=== PATIENT | female | born 1990 | race Caucasian/White ===

== ENCOUNTER 2018-09-18 05:38 | Emergency (ER) | payer MEDICAID, OTHER ==
[~2018-09-18] VITALS: Ht 149.9 cm; Wt 74.8 kg
[2018-09-18] MEDS ORDERED: ZOLPIDEM 5 MG (AMBIEN) TAB ONE (06:32)
--- NOTE | 2018-09-18 06:44 | ED General ---
General Chief Complaint: General Problems/Pain Stated Complaint: NOT SLEEPING Nursing Triage Note: Pt amb to room #5 w/o difficulty. a&ox4. C/o sleep disturbances. Pt states, "I don't remember the last time I got any sleep was." Reports to have gotten an approx x4hr nap yesterday. Pt reports she is unable to sleep d/t stresss and having a 3 month old child. Denies pain. Nursing Sepsis Screen: No Definite Risk Source of Information: Patient, Family History of Present Illness Date Seen by Provider: Sep 18, 2018 Time Seen by Provider: 06:39 Initial Comments 28-year-old white female presents with stress anxiety and insomnia. Patient had an improvement in 3 months ago and is having significant stress and anxiety in her work and home life. The patient has taken nothing for sleep and needs medication temporarily to make this possible. She denies suicidal ideation. The patient has had long-standing stress and anxiety which is peaked with the 3 months ago Patient denies recreational drugs. She denies headache, stiff neck, chest pain, shortness of breath, nausea vomiting or diarrhea. Allergies and Home Medications Allergies Coded Allergies: No Known Drug Allergies (Unverified , 09/18/18) Patient Home Medication List Home Medication List Reviewed: Yes Review of Systems Review of Systems Constitutional: No chills, No fever EENTM: no symptoms reported Respiratory: no symptoms reported; No cough Cardiovascular: no symptoms reported; No chest pain, No palpitations Gastrointestinal: No abdominal pain, No nausea, No vomiting Genitourinary: No dysuria, No frequency Musculoskeletal: No no symptoms reported Skin: No no symptoms reported Psychiatric/Neurological: See HPI, Anxiety, Depressed, Other (insomnia) Hematologic/Lymphatic: No Symptoms Reported Immunological/Allergic: no symptoms reported Past Iptmgpv-Pecvlh-Yqmjot Hx Past Med/Social Hx: Reviewed Nursing Past Med/Soc Hx Patient Social History Alcohol Use: Occasionally Uses Number of Drinks Today: 0 Recreational Drug Use: No Smoking Status: Current Everyday Smoker Type Used: Electronic/Vapor 2nd Hand Smoke Exposure: Yes Recent Foreign Travel: No Contact w/Someone Who Travel: No Recent Infectious Disease Expo: No Recent Hopitalizations: No Physical Abuse: No Sexual Abuse: No Seasonal Allergies Seasonal Allergies: No Past Medical History Surgeries: No Respiratory: No Cardiac: No Neurological: No Genitourinary: No Gastrointestinal: No Musculoskeletal: No Endocrine: No HEENT: No Cancer: No Psychosocial: Yes Anxiety Integumentary: No Physical Exam Vital Signs Vital Signs - First Documented 09/18/18 06:00 Temp 97.7 Pulse 98 Resp 16 B/P (MAP) 139/92 (108) Pulse Ox 100 O2 Delivery Room Air Capillary Refill : Less Than 3 Seconds Height, Weight, BMI Height: 4'11.00" Weight: 165lbs. oz. 74.615696ki; BMI Method:Stated General Appearance: WD/WN, Mild Distress Eyes: Bilateral Eye Normal Inspection HEENT: Normal ENT Inspection Neck: Normal Inspection Respiratory: Chest Non Tender, Lungs Clear, Normal Breath Sounds Cardiovascular: Regular Rate, Rhythm, No Murmur Gastrointestinal: Normal Bowel Sounds, Non Tender, Soft Extremity: Normal Inspection Neurologic/Psychiatric: Alert, Oriented x3, No Motor/Sensory Deficits, Depressed Affect Skin: Normal Color, Warm/Dry Progress/Results/Core Measures Suspected Sepsis Recent Fever Within 48 Hours: No Infection Criteria Present: None New/Unexplained Altered Menta: No Sepsis Screen: No Definite Risk SIRS Temperature:97.7 Pulse: 98 Respiratory Rate: 16 Blood Pressure 139 /92 Mean: 108 Results/Orders My Orders Orders - BRII LAU MD Zolpidem Tablet (Ambien Tablet) (09/18/18 06:45) Vital Signs/I&O 09/18/18 06:00 Temp 97.7 Pulse 98 Resp 16 B/P (MAP) 139/92 (108) Pulse Ox 100 O2 Delivery Room Air Capillary Refill : Less Than 3 Seconds Blood Pressure Mean: 108 Progress Note : Time: 06:44 Progress Note The patient appears clearly depressed. The patient mother both deny suicidal ideation. The cause appears to be the additional stress of the infant as well as work. The patient will be given a small amount of Ambien for sleep today. She agreed to follow up with her primary care physician tomorrow. I think she is going to need treatment for her anxiety and depression. Departure Impression Primary Impression: Anxiety and depression Additional Impression: Insomnia secondary to depression with anxiety Disposition: 01 HOME, SELF-CARE Condition: Unchanged Departure-Patient Inst. Decision time for Depature: 06:45 Referrals: NO,LOCAL PHYSICIAN (PCP) Primary Care Physician Patient Instructions: Anxiety, Adult (DC) Add. Discharge Instructions: Ambien for sleep. Follow up with your doctor as soon as possible for evaluation of anxiety and depression. Return if any problems or questions. All discharge instructions reviewed with patient and/or family. Voiced understanding. BRII LAU MD Sep 18, 2018 06:44
[2018-09-18] MEDS ORDERED: ZOLPIDEM 5 MG (AMBIEN) TAB PO ONE (06:45)
[2018-09-18 06:55] VITALS: BP 139/92
== END 2018-09-18 06:55 | disposition home or self-care (01) ==
LOC: EDUNIT# 05:38 → ER 05:42
DX: F51.05 Insomnia due to other mental disorder (principal); F41.8 Other specified anxiety disorders; F17.290 Nicotine dependence, other tobacco product, uncomplicated
CPT/HCPCS: 99283

== ENCOUNTER 2018-11-25 23:33 | Emergency (ER) | payer MEDICAID | END 2018-11-26 02:20 | disposition home or self-care (01) | LOC: ER 23:33 ==

== ENCOUNTER 2022-02-02 16:47 | Emergency (ER) | payer MEDICAID ==
[~2022-02-02] VITALS: Ht 155 cm; Wt 89.3 kg
[~2022-02-02 16:47] MED LIST: HYDR-700 PO; NITR-65 PO
[2022-02-02] MEDS ORDERED: RX-TOBRA/DEXAMETH (TOBRADEX) OP. SUSP 2.5 ML BTL OU STA (17:40)
[2022-02-02] MEDS ORDERED: KETOROLAC 30 MG/ML VIAL ONE (18:10)
[2022-02-02] MEDS ORDERED: KETOROLAC 30 MG/ML VIAL IVP ONE (18:15)
--- NOTE | 2022-02-02 18:18 | ED Cough/URI ---
General Chief Complaint: COVID19 Suspect/Confirmed Stated Complaint: COUGH,FEVER,SORE THROAT,DIZZY,SOA Nursing Triage Note: pt states rt eye drainage since tuesday, fever, cough, congestion, sore throat, tested neg for covid 01/31 at [facility] Source: patient Exam Limitations: no limitations History of Present Illness Date Seen by Provider: Feb 02, 2022 Time Seen by Provider: 17:58 Initial Comments This is a 31-year-old female who presented to the ER via POV with complaints of right eye drainage timesx4 days, fever cough congestion and sore throat. She was seen at [facility] and tested for COVID and strep throat, states that test were negative. They did fluorescein staining of her right eye and no appreciative corneal abrasion. States that she feels that her eye worsened after the fluorescein staining. She was not prescribed any antibiotics. Allergies and Home Medications Allergies Coded Allergies: No Known Drug Allergies (Unverified , 09/18/18) Patient Home Medication List Hydroxyzine HCl (Hydroxyzine HCl) 25 Mg Tablet, 25-50 MG PO Q6H Prescribed by: SABAS DOUGLAS on 11/26/18214 Nitrofurantoin Monohyd/M-Cryst (Macrobid 100 mg Capsule) 100 Mg Capsule, 100 MG PO BID Prescribed by: SABAS DOUGLAS on 11/26/18214 Past Qrwonzt-Fgjfma-Edlxlu Hx Patient Social History Tobacco Use?: Yes Tobacco type used: Cigarettes Smoking Status: Current Everyday Smoker Substance use?: No Alcohol Use?: No Seasonal Allergies Seasonal Allergies: No Past Medical History Surgery/Hospitalization HX: anxiety Surgeries: No Respiratory: No Cardiac: No Neurological: No Female Reproductive Disorders: Denies Genitourinary: No Gastrointestinal: No Musculoskeletal: No Endocrine: No HEENT: No Cancer: No Psychosocial: Yes Sleep Difficulties, Anxiety, Depression Integumentary: No Blood Disorders: No Physical Exam Vital Signs - First Documented 02/02/22 16:54 Temp 36.6 Pulse 102 Resp 20 B/P (MAP) 127/78 (94) Pulse Ox 97 O2 Delivery Room Air Capillary Refill : Less Than 3 Seconds Height: 4'11.00" Weight: 165lbs. oz. 74.804155ks; 37.00 BMI Method:Stated Progress/Results/Core Measures Suspected Sepsis SIRS Temperature: Pulse: 102 Respiratory Rate: 20 Laboratory Tests 02/02/22 18:15: White Blood Count 11.5H Blood Pressure 127 /78 Mean: 94 Laboratory Tests 02/02/22 18:15: Platelet Count 239 Results/Orders Lab Results Laboratory Tests Test 02/02/22 17:05 02/02/22 17:42 02/02/22 18:15 Range/Units Influenza Type A (RT-PCR) Not Detected Not Detecte Influenza Type B (RT-PCR) Not Detected Not Detecte SARS-CoV-2 RNA (RT-PCR) Not Detected Not Detecte Group A Streptococcus Screen NEGATIVE NEGATIVE White Blood Count 11.5 H 4.3-11.0 10^3/uL Red Blood Count 4.41 3.80-5.11 10^6/uL Hemoglobin 13.1 11.5-16.0 g/dL Hematocrit 40 35-52 % Mean Corpuscular Volume 90 80-99 fL Mean Corpuscular Hemoglobin 30 25-34 pg Mean Corpuscular Hemoglobin Concent 33 32-36 g/dL Red Cell Distribution Width 13.4 10.0-14.5 % Platelet Count 239 130-400 10^3/uL Mean Platelet Volume 9.9 9.0-12.2 fL Immature Granulocyte % (Auto) 0 % Neutrophils (%) (Auto) 68 42-75 % Lymphocytes (%) (Auto) 17 12-44 % Monocytes (%) (Auto) 13 H 0-12 % Eosinophils (%) (Auto) 1 0-10 % Basophils (%) (Auto) 0 0-10 % Neutrophils # (Auto) 7.8 1.8-7.8 10^3/uL Lymphocytes # (Auto) 2.0 1.0-4.0 10^3/uL Monocytes # (Auto) 1.5 H 0.0-1.0 10^3/uL Eosinophils # (Auto) 0.1 0.0-0.3 10^3/uL Basophils # (Auto) 0.0 0.0-0.1 10^3/uL Immature Granulocyte # (Auto) 0.1 0.0-0.1 10^3/uL Monoscreen POSITIVE H NEGATIVE My Orders Orders - KEITH KONG [employer]PA[employer] Covid 19 Inhouse Test (02/02/22 16:56) Influenza A And B By Pcr (02/02/22 16:56) Rx-Tobra/Dexameth Ophth Susp (Rx-Tobrade (02/02/22 17:40) Rapid Strep A Screen (02/02/22 17:41) Monotest (02/02/22 18:02) Cbc With Automated Diff (02/02/22 18:02) Comprehensive Metabolic Panel (02/02/22 18:02) Hs C Reactive Protein (02/02/22 18:02) Ed Iv/Invasive Line Start (02/02/22 18:02) Ketorolac Injection (Toradol Injection) (02/02/22 18:15) Dexamethasone Injection (Decadron Inje (02/02/22 18:15) Ketorolac Injection (Toradol Injection) (02/02/22 18:10) Medications Given in ED Current Medications Medications Dose Ordered Sig/Jeremiah Route Start Time Stop Time Status Last Admin Dose Admin Dexamethasone Sodium Phosphate 10 mg ONCE ONCE IV 02/02/22 18:15 02/02/22 18:16 DC 02/02/22 18:25 10 MG Ketorolac Tromethamine 30 mg ONCE ONCE IVP 02/02/22 18:15 02/02/22 18:28 DC 02/02/22 18:20 30 MG Vital Signs/I&O 02/02/22 16:54 Temp 36.6 Pulse 102 Resp 20 B/P (MAP) 127/78 (94) Pulse Ox 97 O2 Delivery Room Air Capillary Refill : Less Than 3 Seconds Blood Pressure Mean: 94 Departure Impression Primary Impression: Mononucleosis Additional Impression: Conjunctivitis Disposition: 01 HOME, SELF-CARE Condition: Improved Departure-Patient Inst. Decision time for Depature: 18:39 Referrals: [facility] (PCP/Family) Primary Care Physician CARLOS ALBERTO SERRANO OD Patient Instructions: Conjunctivitis (Noninfectious Pinkeye) (DC), How to Use Eye Drops and Eye Ointment ED, Mononucleosis (DC) Add. Discharge Instructions: Plan: 1. Make sure you are drinking plenty of fluids to stay hydrated you can try popsicles, ice, Jell-O as these were all feel soothing to your throat. You can also do salt water rinses 3 times a day or you can eat soup broth as this will also help with the pain in your throat. 2. You can take Tylenol or ibuprofen as needed for pain and comfort. 3. You will need to be off work for the next few days while you recover. After mono you have increased risk of injury to your spleen you need to avoid any roughhousing or significant activity that could injure the left upper side of your abdomen. 4. Instill tobramycin drops into your eye every 4 hours for the next 24 hours and then you can decrease it to 4 times a day. 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 You can contact them tomorrow to see if they can have follow-up for you within the next couple days. See contact information below. 5. Follow-up with your doctor next week if you are having any persistent symptoms. Utilize return to the ER if you have any new, concerning, worsening symptoms. All discharge instructions reviewed with patient and/or family. Voiced understanding. KEITH KONG AUTOMOT[employer] GENERATOR REPAIRER Feb 02, 2022 18:18
[2022-02-02 18:29] LABS: BASOPHILS % (AUTO) 0 % (0-10); EOSINOPHILS # (AUTO) 0.1 10^3/uL (0.0-0.3); EOSINOPHILS % (AUTO) 1 % (0-10); HEMATOCRIT 40 % (35-52); HEMOGLOBIN 13.1 g/dL (11.5-16.0); LYMPHOCYTES % (AUTO) 17 % (12-44); MEAN CORPUSCULAR HEMOGLOBIN 30 pg (25-34); MEAN CORPUSCULAR HGB CONC 33 g/dL (32-36); MEAN CORPUSCULAR VOLUME 90 fL (80-99); MEAN PLATELET VOLUME 9.9 fL (9.0-12.2); MONOCYTES # (AUTO) 1.5 10^3/uL (0.0-1.0); MONOCYTES % (AUTO) 13 % (0-12); NEUTROPHILS # (AUTO) 7.8 10^3/uL (1.8-7.8); NEUTROPHILS % (AUTO) 68 % (42-75); PLATELET COUNT 239 10^3/uL (130-400); WHITE BLOOD COUNT 11.5 10^3/uL (4.3-11.0)
[2022-02-02 18:44] LABS: BILIRUBIN,TOTAL 0.3 MG/DL (0.1-1.0); CALCIUM 8.7 MG/DL (8.5-10.1); CREATININE SERUM 0.74 MG/DL (0.60-1.30); POTASSIUM 3.8 MMOL/L (3.6-5.0); TOTAL PROTEIN 7.4 GM/DL (6.4-8.2)
[2022-02-02 19:00] VITALS: BP 122/70
== END 2022-02-02 19:04 | disposition home or self-care (01) ==
LOC: EDUNIT# 16:47 → ER 16:50
DX: B27.90 Infectious mononucleosis, unspecified without complication (principal); H10.9 Unspecified conjunctivitis; F17.210 Nicotine dependence, cigarettes, uncomplicated; Z20.822 Contact with and (suspected) exposure to COVID-19
CPT/HCPCS: 36415; 80053; 85025; 86141; 86308; 87430; 87636; 99283

== ENCOUNTER 2022-07-18 18:23 | Emergency (ER) | payer MEDICAID ==
[~2022-07-18] VITALS: Ht 157 cm; Wt 91.0 kg
--- NOTE | 2022-07-18 18:56 | ED GI ---
General Chief Complaint: Cough/Cold/Flu Symptoms Stated Complaint: TICK BITE/FLU SYMPTOMS Nursing Triage Note: PT AMB TO RM 10 PT CO OF N/V/D, FEVERS, PT DENIES COUGH, PT STATES HAS TICK BITE ON L SIDE THAT IS REDDEND AND ITCHING. STARTED THIS AM Source of Information: Patient Exam Limitations: No Limitations (SANAZ ELLISON APRN) History of Present Illness Date Seen by Provider: July 18, 2022 Time Seen by Provider: 18:40 Initial Comments 32-year-old female presents to the ED with complaints of flulike symptoms which started at 6 or 7 AM this morning. She reports 3-4 episodes of diarrhea, 3 episodes of vomiting, fever. She reports earlier she had abdominal cramping, denies any now. Reports body aches, but states she often has joint pain, and thinks that could be chronic. She reports that 2 days ago she noticed a tick on her left side which she removed. She is uncertain how long it was attached. She states that that area is now red and warm to touch. She denies chest pain, shortness of air, abdominal pain, nausea sore throat, cough, runny nose, nasal congestion. (SANAZ ELLISON APRN) Allergies and Home Medications Allergies Coded Allergies: No Known Drug Allergies (Unverified , 09/18/18) Patient Home Medication List Home Medication List Reviewed: Yes (SANAZ ELLISON APRN) Doxycycline Hyclate (Doxycycline Hyclate) 100 Mg Tablet.dr, 100 MG PO BID Prescribed by: Sanaz Ellison on 07/18/222101 Hydroxyzine HCl (Hydroxyzine HCl) 25 Mg Tablet, 25-50 MG PO Q6H Prescribed by: SABAS DOUGLAS on 11/26/18214 Nitrofurantoin Monohyd/M-Cryst (Macrobid 100 mg Capsule) 100 Mg Capsule, 100 MG PO BID Prescribed by: SABAS DOUGLAS on 11/26/18214 Review of Systems Review of Systems Constitutional: see HPI (SANAZ ELLISON APRN) Past Lgvkhrg-Uvareu-Xiwppj Hx Patient Social History Tobacco Use?: Yes Tobacco type used: Cigarettes Smoking Status: Current Everyday Smoker Substance use?: No Alcohol Use?: No Pt feels they are or have been: No (SANAZ ELLISON APRN) Immunizations Up To Date Influenza Vaccine Up-to-Date: No; Not Current First/Initial COVID19 Vaccinat: YES Second COVID19 Vaccination Jarett: YES (SANAZ ELLISON APRN) Seasonal Allergies Seasonal Allergies: No (SANAZ ELLISON APRN) Past Medical History Surgery/Hospitalization HX: anxiety, Surgeries: No Respiratory: No Cardiac: No Neurological: No Last Menstrual Period: Jun 17, 2022 Female Reproductive Disorders: Denies Genitourinary: No Gastrointestinal: No Musculoskeletal: No Endocrine: No HEENT: No Cancer: No Psychosocial: Yes Sleep Difficulties, Anxiety, Depression Integumentary: No Blood Disorders: No (SANAZ ELLISON APRN) Physical Exam Vital Signs Vital Signs - First Documented 07/18/22 07/18/22 18:31 19:29 Temp 37.8 Pulse 133 Resp 20 B/P (MAP) 131/73 (92) Pulse Ox 97 O2 Delivery Room Air (MOISÉS HENDRICKS MD) Vital Signs Capillary Refill : (SANAZ ELLISON APRN) Height/Weight/BMI Height: 4'11.00" Weight: 165lbs. oz. 74.604664vn; 36.00 BMI Method:Stated General Appearance: WD/WN, no apparent distress Neck: supple, normal inspection Respiratory: lungs clear, normal breath sounds, no respiratory distress, no accessory muscle use Cardiovascular: tachycardia Gastrointestinal: normal bowel sounds, non tender, soft Extremities: normal range of motion, normal inspection Neurologic/Psychiatric: alert, normal mood/affect Skin: normal color, warm/dry, other (Erythema, elevation noted to left side of abdomen) (SANAZ ELLISON APRN) Focused Exam Lactate Level 07/18/22 18:59: Lactic Acid Level 0.99 (MOISÉS HENDRICKS MD) Lactic Acid Level Laboratory Tests Test 07/18/22 18:59 Lactic Acid Level 0.99 MMOL/L (0.50-2.00) (MOISÉS HENDRICKS MD) Progress/Results/Core Measures Results/Orders Lab Results Laboratory Tests Test 07/18/22 18:35 07/18/22 18:55 07/18/22 18:59 Range/Units White Blood Count 13.7 H 4.3-11.0 10^3/uL Red Blood Count 4.71 3.80-5.11 10^6/uL Hemoglobin 13.8 11.5-16.0 g/dL Hematocrit 42 35-52 % Mean Corpuscular Volume 89 80-99 fL Mean Corpuscular Hemoglobin 29 25-34 pg Mean Corpuscular Hemoglobin Concent 33 32-36 g/dL Red Cell Distribution Width 13.9 10.0-14.5 % Platelet Count 301 130-400 10^3/uL Mean Platelet Volume 10.2 9.0-12.2 fL Immature Granulocyte % (Auto) 1 % Neutrophils (%) (Auto) 80 H 42-75 % Lymphocytes (%) (Auto) 10 L 12-44 % Monocytes (%) (Auto) 8 0-12 % Eosinophils (%) (Auto) 1 0-10 % Basophils (%) (Auto) 0 0-10 % Neutrophils # (Auto) 11.0 H 1.8-7.8 10^3/uL Lymphocytes # (Auto) 1.4 1.0-4.0 10^3/uL Monocytes # (Auto) 1.1 H 0.0-1.0 10^3/uL Eosinophils # (Auto) 0.2 0.0-0.3 10^3/uL Basophils # (Auto) 0.0 0.0-0.1 10^3/uL Immature Granulocyte # (Auto) 0.1 0.0-0.1 10^3/uL Sodium Level 140 135-145 MMOL/L Potassium Level 3.8 3.6-5.0 MMOL/L Chloride Level 105 98-107 MMOL/L Carbon Dioxide Level 23 21-32 MMOL/L Anion Gap 12 5-14 MMOL/L Blood Urea Nitrogen 11 7-18 MG/DL Creatinine 0.76 0.60-1.30 MG/DL Estimat Glomerular Filtration Rate 107 BUN/Creatinine Ratio 14 Glucose Level 101 70-105 MG/DL Calcium Level 8.5 8.5-10.1 MG/DL Corrected Calcium 8.4 L 8.5-10.1 MG/DL Total Bilirubin 0.4 0.1-1.0 MG/DL Aspartate Amino Transf (AST/SGOT) 17 5-34 U/L Alanine Aminotransferase (ALT/SGPT) 20 0-55 U/L Alkaline Phosphatase 71 40-136 U/L Total Protein 7.2 6.4-8.2 GM/DL Albumin 4.1 3.2-4.5 GM/DL Amylase Level 56 25-125 U/L Lipase 20 8-78 U/L Influenza Type A (RT-PCR) Not Detected Not Detecte Influenza Type B (RT-PCR) Not Detected Not Detecte SARS-CoV-2 RNA (RT-PCR) Not Detected Not Detecte Urine Color YELLOW Urine Clarity CLEAR Urine pH 6.0 5-9 Urine Specific Pope <=1.005 1.016-1.022 Urine Protein NEGATIVE NEGATIVE Urine Glucose (UA) NEGATIVE NEGATIVE Urine Ketones NEGATIVE NEGATIVE Urine Nitrite NEGATIVE NEGATIVE Urine Bilirubin NEGATIVE NEGATIVE Urine Urobilinogen 0.2 < = 1.0 MG/DL Urine Leukocyte Esterase TRACE H NEGATIVE Urine RBC (Auto) 2+ H NEGATIVE Urine RBC 2-5 H /HPF Urine WBC 2-5 /HPF Urine Squamous Epithelial Cells 2-5 /HPF Urine Crystals PRESENT H /LPF Urine Amorphous Sediment FEW CONSTANCE URATES H /LPF Urine Bacteria LARGE H /HPF Urine Casts NONE /LPF Urine Mucus NEGATIVE /LPF Urine Other 2-5 STARCH CRYSTALS /HPF Urine Culture Indicated CULTURE PENDING Lactic Acid Level 0.99 0.50-2.00 MMOL/L Ehrlichia chaffeensis IgG Antibody <1:16 <1:16 Ehrlichia chaffeensis IgM Antibody <1:10 <1:10 Spotted Fever Group IgG Antibody <1:16 <1:16 Spotted Fever Group IgM Antibody <1:10 <1:10 [place]aremia Antibody <1:20 (MOISÉS HENDRICKS MD) Micro Results Microbiology 07/18/22 Blood Culture - Preliminary, Resulted No growth 07/18/22 Blood Culture - Preliminary, Resulted No growth 07/18/22 Urine Culture - Final, Complete See Comments (MOISÉS HENDRICKS MD) Vital Signs/I&O 07/18/22 07/18/22 07/18/22 18:31 19:29 21:06 Temp 37.8 Pulse 133 104 105 Resp 20 20 B/P (MAP) 131/73 (92) 142/90 122/74 Pulse Ox 97 98 98 O2 Delivery Room Air Room Air (MOISÉS HENDRICKS MD) Blood Pressure Mean: 92 Progress Progress Note : Time: 18:55 Progress Note Patient seen and evaluated, resting comfortably in bed, no acute distress. Based on exam and symptoms, work-up initiated including CBC, CMP, amylase, lipase, UA, sputum culture, chest x-ray, lactic acid, tick panel, COVID swab. IV fluids. Labs and imaging reviewed. CBC shows slightly elevated WBC 13.7, neutrophil percentage elevated 80. CMP grossly normal. Lactic acid normal at 0.99. Amylase and lipase normal. UA shows trace leukocytes, 2+ RBCs, 2-5 WBCs, 2-5 squamous epithelial cells, large bacteria. Urinalysis shows possible infection, patient denies any urinary tract infection symptoms. Will not treat for UTI at this time. COVID and flu negative. Chest x-ray negative for acute finding. Will treat for tickborne illness with Rocephin and discharged with doxycycline. Results discussed with patient. Discharge instructions and return precautions provided. (SANAZ ELLISON APRN) Diagnostic Imaging Diagonstic Imaging: Xray Plain Films/CT/US/NM/MRI: chest Comments [facility], [place] NAME: NORA STEPHENSON [facility] REC#: [id number] PT STATUS: REG ER : 1990 PHYSICIAN: SANAZ ELLISON APRN ADMIT DATE: 07/18/22/ER Signed Date of Exam:07/18/22 CHEST 1 VIEW, AP/PA ONLY EXAMINATION: Chest 1 view. HISTORY: Chest pain. Vomiting. COMPARISON: None available. FINDINGS: The lung volumes are normal. No focal consolidation is seen. No large pleural effusion or pneumothorax is seen. The cardiomediastinal silhouette is normal in size and contour. No acute osseous abnormality is seen. IMPRESSION: No acute pleuroparenchymal process. Dictated by: Dictated on workstation # [id number] Dict: 07/18/221921 Trans: 07/18/221932 [facility] [id number] Interpreted by: MEE PALACIO DO Electronically signed by: MEE PALACIO DO 07/18/221932 (SANAZ ELLISON APRN) Departure Impression Primary Impression: Vomiting Additional Impressions: Diarrhea Tick bite of abdomen Disposition: HOME, SELF-CARE Condition: Stable Departure-Patient Inst. Decision time for Depature: 21:01 (SANAZ ELLISON APRN) Referrals: [facility] (PCP/Family) Primary Care Physician Patient Instructions: [id number] Add. Discharge Instructions: Complete full course of antibiotic as directed. Follow-up with your primary care provider. Return for recurrent vomiting, recurrent diarrhea, or any other new, concerning, or worsening symptoms. All discharge instructions reviewed with patient and/or family. Voiced understanding. Scripts Doxycycline Hyclate (Doxycycline Hyclate) 100 Mg Tablet. 100 MG PO BID for 14 Days, #28 TAB 0 Refills Prov: SANAZ ELLISON APRN 07/18/22 ATTENDING PHYSICIAN NOTE: I was physically present as attending physician in the emergency department during the care of this patient, but I was not directly involved in the decision making or delivery of care for this patient. (MOISÉS HENDRICKS MD) SANAZ ELLISON APRN July 18, 2022 18:56 MOISÉS HENDRICKS MD July 20, 2022 19:22
[2022-07-18] MEDS: NS IV 1000 ML 1,000 ML IV SCH ×2 (18:58→19:52)
[2022-07-18 19:05] LABS: BASOPHILS % (AUTO) 0 % (0-10); EOSINOPHILS # (AUTO) 0.2 10^3/uL (0.0-0.3); EOSINOPHILS % (AUTO) 1 % (0-10); HEMATOCRIT 42 % (35-52); HEMOGLOBIN 13.8 g/dL (11.5-16.0); LYMPHOCYTES # (AUTO) 1.4 10^3/uL (1.0-4.0); LYMPHOCYTES % (AUTO) 10 % (12-44); MEAN CORPUSCULAR HEMOGLOBIN 29 pg (25-34); MEAN CORPUSCULAR HGB CONC 33 g/dL (32-36); MEAN CORPUSCULAR VOLUME 89 fL (80-99); MEAN PLATELET VOLUME 10.2 fL (9.0-12.2); MONOCYTES # (AUTO) 1.1 10^3/uL (0.0-1.0); MONOCYTES % (AUTO) 8 % (0-12); NEUTROPHILS % (AUTO) 80 % (42-75); PLATELET COUNT 301 10^3/uL (130-400); WHITE BLOOD COUNT 13.7 10^3/uL (4.3-11.0)
[2022-07-18 19:07] LABS: ALBUMIN 4.1 GM/DL (3.2-4.5)
[2022-07-18 19:08] LABS: AMYLASE 56 U/L (25-125); POTASSIUM 3.8 MMOL/L (3.6-5.0)
[2022-07-18 19:08] LABS: BILIRUBIN,URINE NEGATIVE (NEGATIVE); CLARITY,URINE CLEAR; COLOR,URINE YELLOW; GLUCOSE, URINE (UA) NEGATIVE (NEGATIVE); KETONES,URINE NEGATIVE (NEGATIVE); LEUKOCYTE ESTERASE ,URINE TRACE (NEGATIVE); NITRITE,URINE NEGATIVE (NEGATIVE); PROTEIN,URINE NEGATIVE (NEGATIVE)
[2022-07-18 19:09] LABS: CALCIUM 8.5 MG/DL (8.5-10.1)
[2022-07-18 19:10] LABS: TOTAL PROTEIN 7.2 GM/DL (6.4-8.2)
[2022-07-18 19:12] LABS: BILIRUBIN,TOTAL 0.4 MG/DL (0.1-1.0)
[2022-07-18 19:14] LABS: CREATININE SERUM 0.76 MG/DL (0.60-1.30)
[2022-07-18 19:17] LABS: LIPASE 20 U/L (8-78)
--- NOTE | 2022-07-18 19:25 | Diagnostic Imaging Report ---
EXAMINATION: Chest 1 view. HISTORY: Chest pain. Vomiting. COMPARISON: None available. FINDINGS: The lung volumes are normal. No focal consolidation is seen. No large pleural effusion or pneumothorax is seen. The cardiomediastinal silhouette is normal in size and contour. No acute osseous abnormality is seen. IMPRESSION: No acute pleuroparenchymal process. Dictated by: Dictated on workstation # [id number]
[2022-07-18 19:26] LABS: AMORPHOUS SEDIMENT,UR FEW AMOR URATES /LPF; BACTERIA,URINE LARGE /HPF
[2022-07-18 19:27] LABS: URINE OTHER 2-5 STARCH CRYSTALS /HPF
[2022-07-18] MEDS ORDERED: cefTRIAXone IV/IM 1,000 MG in NS (IVPB) 50 ML IV ONE (20:15)
[2022-07-18] MEDS: cefTRIAXone IV/IM 1,000 MG in NS (IVPB) 50 ML IV ONE ×2 (20:19→20:20)
[2022-07-18] MEDS ORDERED: DOXY-227 PO (21:02)
[2022-07-18 21:06] VITALS: BP 122/74
== END 2022-07-18 21:06 | disposition home or self-care (01) ==
LOC: EDUNIT# 18:23 → ER 18:25
DX: S30.861A Insect bite (nonvenomous) of abdominal wall, initial encounter (principal); R19.7 Diarrhea, unspecified; R11.2 Nausea with vomiting, unspecified; D72.829 Elevated white blood cell count, unspecified; F17.210 Nicotine dependence, cigarettes, uncomplicated; Z20.822 Contact with and (suspected) exposure to COVID-19; W57.XXXA Bitten or stung by nonvenomous insect and other nonvenomous arthropods, initial encounter
CPT/HCPCS: 36415; 71045; 80053; 81000; 82150; 83605; 83690; 85025; 86618; 86666; 86668; 86757; 87040; 87088; 87636